=== PATIENT | male | born 1985 ===

== ENCOUNTER 2018-07-10 20:26 | Emergency (ER) | payer OTHER ==
[~2018-07-10] VITALS: Ht 175.3 cm; Wt 83.5 kg
[~2018-07-10 20:26] MED LIST: KETO10TA2 PO; MEDROLPACK PO; NORFLEX100MG PO; ORPH100T PO; VOLTAREN-XR100 MG PO
== END 2018-07-10 23:31 | disposition home or self-care (01) ==
LOC: ER 20:26
DX: J31.0 Chronic rhinitis (principal); L29.8 Other pruritus

== ENCOUNTER 2021-06-27 06:20 | Day surgery (SDC) | payer OTHER | END 2021-06-27 16:20 | disposition home or self-care (01) | LOC: CIR.AMB 06:20 | PROVIDERS: ATTEND Urology | DX: N43.2 Other hydrocele (principal); Z20.822 Contact with and (suspected) exposure to COVID-19 ==